=== PATIENT | female | born 1975 | race Caucasian/White ===

== ENCOUNTER 2020-01-30 17:00 | Emergency (ER) | payer OTHER, SELFPAY ==
[2020-01-30 17:16] VITALS: BP 128/84; PULSE 72; RESP 17; TEMP 36.9; O2SAT 99; BMI 42.9
--- NOTE | 2020-01-30 18:00 | ED_ITS ---
HPI - Headache General Chief Complaint: Headache Stated Complaint: migraine Time Seen by Provider: 01/30/20 17:22 Source: patient Mode of arrival: ambulatory Limitations: no limitations History of Present Illness HPI Narrative: Patient presents to ED for migraine exacerbation. Patient states having headache for the past 4 days. Patient states having severe history of migraine and follow-up with neurologist. Patient states used to be on ergotamine by her neurologist but then stopped working in October of this year. Patient presently is not on any migraine exacerbation and has appointment with neurology in 2 weeks. Patient states she is having similar presentation with photophobia and headache. Patient denies any neck stiffness, fever, chills, body aches, chest pain, coughing up blood, shortness of breath. Patient denies any recent head trauma. Related Data Previous Rx's Medication Instructions Recorded khknkyjoat-lvrbhxvtotlsn-efeh 1 cap PO Q4H PRN #20 cap 01/30/20 [Fioricet] ergotamine tartrate 2 mg SUBLINGUAL Q30M PRN #5 tab 01/30/20 naproxen 500 mg PO BID PRN #20 tab 01/30/20 Allergies Allergy/AdvReac Type Severity Reaction Status Date / Time No Known Allergies Allergy Unverified 11/22/19 18:26 Review of Systems Review of Systems: Yes all other systems are reviewed and are negative Constitutional: Constitutional: Reports as per HPI, Reports no additional constitutional complaints and Reports headache(s) Eyes: Eyes: Reports as per HPI and Reports no additional eye complaints Comments: Photophobia ENT: Reports system reviewed and no additional complaints, except as documented, Reports as per HPI and Reports headache(s) Cardiovascular: Cardiovascular: Reports as per HPI and Reports no additional cardiovascular complaints Respiratory: Respiratory: Reports as per HPI and Reports no additional respiratory complaints Gastrointestinal: Gastrointestinal: Reports as per HPI, Reports no additional gastrointestinal complaints and Reports nausea Genitourinary: Genitourinary: Reports no additional female genitourinary complaints and Reports as per HPI Musculoskeletal: Musculoskeletal: Reports no additional musculoskeletal complaints and Reports as per HPI Neurologic: Reports system reviewed and no additional complaints, except as documented, Reports as per HPI and Reports headache(s) Psychiatric: Psychiatric: Reports no additional psychiatric complaints and Reports as per HPI PMF Past Medical History Medical History (Updated 01/31/20 @ 00:00 by Background Daemon) HTN (hypertension) Migraine Social History Social History Alcohol intake: never Smoking Status: Never smoker Smoked in Last 30 Days: No Use of substances other than those prescribed or required for medical reasons: No Advance Directives: No Advance Directives Information Provided: Yes Physical Exam Vital Signs: Vital Signs: Last Vital Signs Temp 98.5 F 01/30/20 17:16 Pulse 98 01/30/20 21:19 Resp 18 01/30/20 21:19 BP 126/68 01/30/20 21:19 Pulse Ox 100 01/30/20 21:19 Body Mass Index 42.9 Const: General: healthy appearing, comfortable, no acute distress, well developed and awake Orientation/consciousness: patient oriented x3 HENMT: Head: Yes normal to inspection, Yes No palpable skull fracture present, Yes atraumatic, No Murillo's sign, No contusion, No hematoma, No laceration, No palpable skull fracture, No raccoon eyes, No scalp tenderness, No Temporal artery tenderness present and No periorbital ecchymosis Eyes: Other: positive for photophobia General: appearance normal, both eyes and all related structures Neck: Neck: Yes normal visual inspection, Yes full ROM, Yes no lymphadenopathy, Yes no meningeal signs, Yes trachea midline, Yes supple and No tender Chest: Chest palpation & inspection: normal inspection of the chest, normal palpation of entire chest wall and no localized rib tenderness Resp: Effort & Inspection: normal respiratory effort and able to speak in complete sentences Auscultation: clear to auscultation bilaterally, no crackles, no rales, no rhonchi and no wheezes Cardio: Jugular venous distension: no JVD Heart sounds: S1 normal heart sound present and S2 normal heart sound present GI: Inspection: Yes normal to inspection and No abdominal wall ecchymosis Palpation (GI): Soft to palpation, not firm, nontender, no guarding and not rigid : General: No CVA tenderness and Yes no CVA tenderness Back/Spine/Pelvis: Back: no CVA tenderness, No CVA tenderness and No back tenderness Skin: General skin exam: no rashes or lesions noted Neuro: General: patient oriented x3, gait normal, no meningeal signs and CN's II-XI intact bilaterally Cranial nerves: Yes CN's II-XII intact bilaterally Extrem: General: Yes normal to inspection and Yes full ROM Psych: Appearance: grossly normal, well kempt and not disheveled Course Course Course Narrative: history physical exam indicate migraine exacerbation. Patient will be given migraine cocktail and re-evaluated. No need for imaging patient states headache is similar to prior presentation denies any recent head trauma. History physical exam does not indicate meningitis. Reevaluation(s) Reevaluation #1: Patient states headache resolved after receiving migraine cocktail. Urine is negative. Patient states presently she is on menstruation which explains blood in urine. Patient will be discharged with naproxen and Fioricet. Patient states she called the neurologist office today and they said she could go back on the ergotamine, but she went to the [facility] and there was no refills so she is requesting for a ergotamine to be ordered. Time: 21:01 MDM - Headache MDM Narrative Medical decision making narrative: migraine exacerbation Lab Data Labs: Lab Results 01/30/20 Range/Units 18:33 Urine Color YELLOW Urine Appearance CLEAR Urine pH 6.0 (5.0-8.0) Ur Specific [place] 1.025 (1.005-1.025) Urine Protein TRACE (NEG-TRACE) MG/DL Urine Glucose (UA) NEG (NEG) MG/DL Urine Ketones NEG (NEG) MG/DL Urine Blood 3+ H (NEG) Urine Nitrite NEG (NEG) Ur Leukocyte Esterase NEG (NEG) Urine RBC 10-14 H (0) /HPF Urine WBC 0-2 (0-4) /HPF Ur Squamous Epith Cells NONE /LPF Urine Bacteria TRACE /LPF Urine Test NEGATIVE (NEGATIVE) Discharge Plan Discharge Clinical Impression: Migraine Patient Disposition: Home, Self-Care Instructions: Migraine Headache (ED) Additional Instructions: return to the ED immediately for neck stiffness, severe headache, passing out, nausea, vomiting, fever, chills, or any other concerning symptoms. Please follow-up with your neurologist Prescriptions: New vffntmwvvn-nvmiffzoitxml-bsvq [Fioricet] 50-300-40 mg capsule 1 cap PO Q4H PRN (Reason: migraine headache) Qty: 20 RF: 0 naproxen 500 mg tablet 500 mg PO BID PRN (Reason: pain) Qty: 20 RF: 0 ergotamine tartrate 2 mg tablet, sublingual 2 mg sublingual Q30M PRN (Reason: migraine) Qty: 5 RF: 0 Interventions: ED Discharge Assessment Last Done: 01/30/20 21:13 Discharge Date/Time: 01/30/20 21:20 Print Language: Slovak
[2020-01-30] MEDS: 0.9 % Sodium Chloride 1,000 ML 999 ML IVCONT (18:23)
[2020-01-30] MEDS: diphenhydrAMINE HCL 50 MG/ML VIAL IVPUSH (18:24)
[2020-01-30] MEDS: Ketorolac Tromethamine 30 MG/ML VIAL IVPUSH (18:24)
[2020-01-30] MEDS: Metoclopramide HCl 10 MG/2 ML VIAL IVPUSH (18:25)
[2020-01-30 18:35] VITALS: BP 150/77; PULSE 100; RESP 16; O2SAT 100
[2020-01-30 19:02] LABS: Glucose Urine UA NEG (NEG); Leukocyte Esterase Urine NEG (NEG); Nitrite Urine NEG (NEG); Specific Gravity - Urine 1.025 (1.005-1.025); Urine Blood 3+ (NEG); Urine Ketones NEG (NEG); Urine Protein TRACE MG/DL (NEG-TRACE)
[2020-01-30 19:13] LABS: Appearance Urine CLEAR; Color Urine YELLOW
[2020-01-30 19:15] LABS: UPreg QC Valid YES; Urine Pregnancy NEGATIVE (NEGATIVE)
[2020-01-30 19:19] LABS: Bacteria Urine TRACE /LPF; WBC Urine 0-2 /HPF (0-4)
[2020-01-30 20:26] VITALS: BP 113/59; PULSE 70; RESP 16; O2SAT 98
[2020-01-30 21:19] VITALS: BP 126/68; PULSE 98; RESP 18; O2SAT 100
== END 2020-01-30 21:20 | disposition home or self-care (01) ==
PROVIDERS: Physician Assistant; Emergency Provider Emergency Medicine; PCP Internal Medicine
DX: G43.909 Migraine, unspecified, not intractable, without status migrainosus (principal); Z79.899 Other long term (current) drug therapy
CPT/HCPCS: 81001; 81003; 81025; 96361; 96374; 96375; 99284; J1200; J1885; J2765

== ENCOUNTER 2021-01-15 04:37 | Emergency (ER) | payer OTHER, SELFPAY ==
[2021-01-15 06:58] VITALS: BP 152/77; PULSE 96; RESP 19; TEMP 36.6; O2SAT 98; BMI 43.4
--- NOTE | 2021-01-15 07:08 | ED.HA ---
HPI - Headache General Chief Complaint: Headache Stated Complaint: Chronic Migraine Time Seen by Provider: 01/15/21 07:08 Source: patient Mode of arrival: ambulatory Limitations: no limitations History of Present Illness HPI Narrative: patient with a 10 year history of chronic migraine. This headache started 2 weeks ago, bilateral temperal and neck, patient with vomiting and aura MD elicited complaint: migraine Onset (ago): week(s) Onset description: gradually Location: right and left Severity: moderate Quality & Timing: aching Associated symptoms: nausea and vomiting Related Data Previous Rx's Medication Instructions Recorded katlcgbfku-ntkpewcfbprur-hyhccusx 1 cap PO Q4H PRN #20 cap 01/30/20 50 mg-300 mg-40 mg capsule (Fioricet) ergotamine tartrate 2 mg 2 mg SUBLINGUAL Q30M PRN #5 tab 01/30/20 sublingual tablet naproxen 500 mg tablet 500 mg PO BID PRN #20 tab 01/30/20 promethazine 25 mg tablet 25 mg PO TID PRN #14 tab 01/15/21 Allergies Allergy/AdvReac Type Severity Reaction Status Date / Time No Known Allergies Allergy Unverified 11/22/19 18:26 Review of Systems Constitutional: Constitutional: Reports no additional constitutional complaints Eyes: Eyes: Reports no additional eye complaints ENT: Denies dizziness Cardiovascular: Cardiovascular: Reports no additional cardiovascular complaints Respiratory: Respiratory: Reports as per HPI Gastrointestinal: Gastrointestinal: Reports no additional gastrointestinal complaints Genitourinary: Genitourinary: Reports no additional female genitourinary complaints Musculoskeletal: Musculoskeletal: Reports no additional musculoskeletal complaints Integumentary/Breasts: Skin/Breast: Denies rash Neurologic: Reports system reviewed and no additional complaints, except as documented, Denies dizziness and Denies Sensory deficit (Neuro) Psychiatric: Psychiatric: Denies anxiety [facility] Past Medical History Medical History HTN (hypertension) Migraine Social History Social History Alcohol intake: never Advance Directives: No Advance Directives Information Provided: Yes Patient : No Physical Exam Vital Signs: Vital Signs: Last Vital Signs Temp 98.4 F 01/15/21 09:23 Pulse 80 01/15/21 09:23 Resp 14 01/15/21 09:23 BP 126/70 01/15/21 09:23 Pulse Ox 100 01/15/21 09:23 Body Mass Index 43.4 Const: General: healthy appearing Nutritional Appearance: average body habitus Orientation/consciousness: oriented to person and patient oriented x3 Limitations: no limitations HENMT: Head: Yes normal to inspection Ears: external ears normal General nose exam: Normal external nose present Mouth: Normal oral and palatal mucosa present and oropharynx normal Throat: Yes posterior oropharynx normal Eyes: General: appearance normal, both eyes and all related structures Neck: Other: supple Neck: Yes normal visual inspection Chest: Chest palpation & inspection: normal inspection of the chest Resp: Auscultation: clear to auscultation bilaterally Cardio: Jugular venous distension: no JVD Rate: regular rate Rhythm: regular rhythm Heart sounds: S1 normal heart sound present and S2 normal heart sound present GI: Inspection: Yes normal to inspection Palpation (GI): Soft to palpation, nontender and No hepatosplenomegaly present Auscultation: normal bowel sounds : General: Yes no CVA tenderness Back/Spine/Pelvis: Back: no CVA tenderness Skin: General skin exam: no rashes or lesions noted Neuro: General: oriented to person and patient oriented x3 Cranial nerves: Yes CN's II-XII intact bilaterally Motor exam (neuro): 5/5 motor strength present throughout Sensory Exam: No Sensory deficit (Neuro) Extrem: General: Yes normal to inspection Psych: Appearance: grossly normal Course Reevaluation(s) Reevaluation #1: patient feeling much better will dc home Time: 09:43 Discharge Plan Discharge Clinical Impression: Migraine Qualifiers: Migraine type: with aura Status migrainosus presence: with status migrainosus Intractability: not intractable Qualified Code(s): G43.101 - Migraine with aura, not intractable, with status migrainosus Patient Disposition: Home, Self-Care Instructions: Migraine Headache (ED) Prescriptions: New promethazine 25 mg tablet 25 mg PO TID PRN (Reason: nausea and vomiting) Qty: 14 RF: 0 No Action tunzoitags-epeeyqngjdvqw-pzof [Fioricet] 50-300-40 mg capsule 1 cap PO Q4H PRN (Reason: migraine headache) Qty: 20 RF: 0 naproxen 500 mg tablet 500 mg PO BID PRN (Reason: pain) Qty: 20 RF: 0 ergotamine tartrate 2 mg tablet, sublingual 2 mg sublingual Q30M PRN (Reason: migraine) Qty: 5 RF: 0 Referrals: Pieter Linn MD [Primary Care Provider] - 1 week
[2021-01-15] MEDS: Ketorolac Tromethamine 15 MG/ML VIAL 30 MG IVPUSH (07:55)
[2021-01-15] MEDS: 0.9 % Sodium Chloride 1,000 ML 999 ML IVCONT ×2 (07:59→09:15)
[2021-01-15 09:23] VITALS: BP 126/70; PULSE 80; RESP 14; TEMP 36.9; O2SAT 100
== END 2021-01-15 10:01 | disposition home or self-care (01) ==
PROVIDERS: Emergency Provider Emergency Medicine; PCP Internal Medicine
DX: G43.101 Migraine with aura, not intractable, with status migrainosus (principal); I10 Essential (primary) hypertension
CPT/HCPCS: 96361; 96374; 96375; 99284; J1885; J2550

== ENCOUNTER 2023-01-11 20:19 | Emergency (ER) | payer OTHER, SELFPAY ==
[2023-01-11 20:26] VITALS: BP 148/92; PULSE 84; RESP 18; TEMP 36.9; O2SAT 99; BMI 36.5
--- NOTE | 2023-01-11 20:26 | ED_ITS ---
HPI - General Adult General Chief complaint: General Medical Stated complaint: Vertigo/High blood pressure/Migraine Time Seen by Provider: 01/11/23 23:25 Source: patient Mode of arrival: ambulatory Limitations: no limitations History of Present Illness HPI narrative: 47 yo female with PMH of migraines who received botox injections, HTN who was not fully compliant with medications until recently (sounds like she has been caring for a sick family member) notes for the past three days typical migraine pattern. She did not have trauma or fevers. She states it just won't go away. Has hx of vertigo and got a sense tonight she was going to have an episode and had 20 minutes of room spinning no other neuro symptoms that has resolved. Not on blood thinners. MD complaint: headache and vertigo Onset (ago): day(s) (3) Location: head Radiation: non-radiation Severity: moderate Quality: aching and constant Pain Consistency: constant Relieving factors: rest Exacerbating factors: other (bright light noise) Associated symptoms: nausea/vomiting Treatments prior to arrival: other (did take her lisinopril tonight) Related Data Previous Rx's Medication Instructions Recorded kszatxolbi-rbisyqvujqzrp-hlgvxytt 1 cap PO Q4H PRN migraine headache 01/30/20 50 mg-300 mg-40 mg capsule #20 caps (Fioricet) ergotamine tartrate 2 mg 2 mg sublingual Q30M PRN migraine 01/30/20 sublingual tablet #5 tabs naproxen 500 mg tablet 500 mg PO BID PRN pain #20 tabs 01/30/20 promethazine 25 mg tablet 25 mg PO TID PRN nausea and 01/15/21 vomiting #14 tabs Allergies Allergy/AdvReac Type Severity Reaction Status Date / Time No Known Allergies Allergy Unverified 11/22/19 18:26 Review of Systems 2 Review of Systems: Constitutional : No Fever, No Chills, No Fatigue ENT/Mouth : No sore throat, No Rhinorrhea Eyes: No Eye Pain, No Swelling, No Redness Cardiovascular : No Chest Pain, No SOB, No Dyspnea on Exertion Respiratory : No Cough, No Sputum Gastrointestinal : pos Nausea, No Vomiting, No Diarrhea, No abdominal Pain Genitourinary : No Dysuria, No Urinary Frequency, No Hematuria, Musculoskeletal : No joint pain, No Myalgias, No Joint Swelling Skin : No Skin Lesions, No rash Neuro : No Weakness, No Numbness, pos Dizziness, positive Headache Psych : No Anxiety/Panic, No Depression Heme/Lymph: No Bruising, No Bleeding,No Lymphadenopathy Endocrine : No Polyuria, No Polydipsia All other systems reviewed and are negative [facility] Past Medical History Attestation statement: The following information was validated with the patient. Medical History HTN (hypertension) Migraine Social History Social History (Updated 01/12/23 @ 00:20 by Jenna Rico DO) Alcohol intake: never Patient Tobacco Use Status: Never used Tobacco Smoked in Last 30 Days: No Use of substances other than those prescribed or required for medical reasons: No Advance Directives: No Advance Directives Information Provided: No Patient : No Physical Exam ED Vital Signs: Vital Signs - 24 hr 01/11/23 20:26 01/11/23 23:36 01/11/23 23:37 Temperature 98.5 F Pulse Rate 84 71 77 Respiratory Rate 18 Blood Pressure 148/92 H 165/86 H 166/95 H Pulse Oximetry 99 Oxygen Delivery Method Room Air 01/11/23 23:38 01/12/23 00:53 Temperature Pulse Rate 77 86 Respiratory Rate 15 Blood Pressure 180/99 H 139/77 Pulse Oximetry 98 Oxygen Delivery Method Room Air BMI result Body Mass Index 36.5 Appearance: Alert. Oriented X3. No acute distress. Eyes: Pupils equal, round and reactive to light. ENT: Pharynx normal. Neck: Normal inspection. Neck supple. CVS: Normal heart rate and rhythm. Pulses normal. Respiratory: No respiratory distress. Breath sounds normal. Abdomen: Soft and nontender. Skin: Skin warm and dry. Normal skin color. Normal skin turgor. Extremities: No lower extremity edema. No calf ttp Neuro: Oriented X 3. No motor deficit. No sensory deficit. no drift, normal neuro exam Course Course Course Narrative: This is an RME: Additional HPI, ROS, PE not included below will be deferred to primary provider. Patient is a 47-year-old female who presents emergency department reporting concern of intermittent migraine for the past 3 days, unrelieved with caffeine tablet, states she typically takes ergotamine 300mg but did not have this available to her. Reports associated dizziness, room spinning sensation, feels like her usual vertigo. Denies fevers, chills, URI symptoms, neck pain. Follows [place] neurology for Botox management of migraines, states she can not go for Botox with an active migraine as this will worsen it. Plan: labs Reevaluation(s) Reevaluation #1: feels better stable for DC Medications Administered Discontinued Medications Generic Name Dose Route Start Last Admin Trade Name Sera PRN Reason Stop Dose Admin Diphenhydramine HCl 25 mg 01/11/23 23:47 01/12/23 00:29 Diphenhydramine Hcl 50 Mg/Ml Vial IVPUSH 01/11/23 23:48 25 mg ONCE ONE Administration Sodium Chloride 1,000 mls @ 999 mls/hr 01/11/23 23:45 01/12/23 00:29 Ns IV 01/12/23 00:45 999 mls/hr .Q1H1M VILMA Administration Ketorolac Tromethamine 15 mg 01/11/23 23:47 01/12/23 00:29 Ketorolac Tromethamine 15 Mg/Ml Vial IVPUSH 01/11/23 23:48 15 mg ONCE ONE Administration Metoclopramide HCl 10 mg 01/11/23 23:47 01/12/23 00:29 Metoclopramide Hcl 10 Mg/2 Ml Vial IVPUSH 01/11/23 23:48 10 mg ONCE ONE Administration Medical Decision Making Medical Decision Making [facility] Narrative: 47 yo female with PMH of HTN, migraines here with c/o 3 days of typical migraine gradual onset, afebrile normal neuro exam no meningeal signs doubt [employer] Infection or SAH. Has hx of vertigo and had a sense she was going to have episode tonight which she did - lasted 20 minutes no other associated symptoms she has NIH of 0 at this time doubt posterior stroke. Will treat for migraine and reassess. Differential Diagnosis Differential Diagnoses: The differential diagnosis associated with the presentation includes migraine, vertigo, tension headache, elevated BP Admission/Observation Consideration of admission/observation: Escalation of care including admission/observation considered feels much better stable for DC Lab Data [facility] Lab Attestation statement: I reviewed the patient's lab results. 01/11/23 20:44 01/11/23 20:44 Labs: Lab Results 01/11/23 Range/Units 20:44 WBC 9.9 (4.8-10.8) X10*3/uL RBC 4.74 (4.20-5.50) X10*6/uL Hgb 13.4 (12.0-16.0) g/dl Hct 39.2 (37.0-47.0) % MCV 82.7 (80.0-98.0) fL MCH 28.3 (27.0-33.0) pg MCHC 34.2 (31.0-35.0) g/dl RDW 13.2 (11.0-16.0) % Plt Count 307 (160-400) X10*3/uL MPV 11.2 (9.4-12.3) fL Immature Gran % (Auto) 0.4 (0.0-0.4) % Neut % (Auto) 67.0 (45-73) % Lymph % (Auto) 25.3 (20-40) % [place] % (Auto) 5.0 (2-11) % Eos % (Auto) 1.5 (0-4) % Baso % (Auto) 0.8 (0-2) % Lymph # (Auto) 2.5 (1.2-4.9) X10*3/uL [place] # (Auto) 0.5 (0.1-1.2) X10*3/uL Eos # (Auto) 0.2 (0.0-0.4) X10*3/uL Baso # (Auto) 0.1 (0.0-0.2) X10*3/uL Abs Immat Gran (auto) 0.04 H (0.00-0.03) X10*3/uL Absolute Neuts (auto) 6.6 (2.0-8.3) x10*3/uL Absolute Nucleated RBC 0.000 (0.0-0.012) X10*3/uL Nucleated RBC % (auto) 0.0 (0.0-0.2) /100WBC Sodium 135 (135-145) mmol/L Potassium 3.6 (3.3-5.1) mmol/L Chloride 104 (96-108) mmol/L Carbon Dioxide 22 (22-29) mmol/L Anion Gap 13 (12-20) BUN 8 L (9-16) mg/dL Creatinine 0.67 (0.5-1.4) mg/dL Estim Creat Clear Calc 113.9 Estimated GFR > 60 Random Glucose 249 H (60-115) mg/dL Calcium 8.5 (8.4-10.2) mg/dL Total Bilirubin 0.4 (0.0-1.0) mg/dL AST 15 (5-31) U/L ALT 20 (0-31) U/L Alkaline Phosphatase 98 (39-117) U/L Total Protein 6.8 (6.5-8.0) g/dL Albumin 3.9 (3.5-5.0) g/dL COVID-19 ([facility]) Negative (Negative) COVID-19 Clin Com See Note Influenza Type A (MARISELA) Negative (Negative) Influenza Type B (MARISELA) Negative (Negative) Influenza A & B Note See Note External Record Review External record reviewed: Inpatient record Tests considered The following testing was considered but not selected: CT head but normal neuro exam and hx of same doubt ICH Prescription Management I considered prescription management with: Other Discharge Plan Discharge Clinical Impression: Vertigo Headache, migraine Qualifiers: Migraine type: unspecified Status migrainosus presence: without status migrainosus Intractability: not intractable Qualified Code(s): G43.909 - Migraine, unspecified, not intractable, without status migrainosus Patient Disposition: Home, Self-Care Instructions: Migraine Headache (ED), Vertigo (ED) Additional Instructions: return for worsening pain, numbness, weakness, fevers, vision changes or any other concerns. Prescriptions: No Action sncgalvfhm-blfrrgehqzmfo-ogpf [Fioricet] 50-300-40 mg capsule 1 cap PO Q4H PRN (Reason: migraine headache) Qty: 20 0RF naproxen 500 mg tablet 500 mg PO BID PRN (Reason: pain) Qty: 20 0RF ergotamine tartrate 2 mg tablet, sublingual 2 mg sublingual Q30M PRN (Reason: migraine) Qty: 5 0RF Rx Instructions: do not exceed 6 mg per day or 10 mg per wk promethazine 25 mg tablet 25 mg PO TID PRN (Reason: nausea and vomiting) Qty: 14 0RF Rx Instructions: may take for headache as well as [place]
[2023-01-11 20:49] LABS: MANUAL DIFF FLAG NO
[2023-01-11 20:50] LABS: Basophils Absolute Auto 0.1 X10*3/uL (0.0-0.2); Basophils Percent Auto 0.8 % (0-2); Eosinophils Absolute Auto 0.2 X10*3/uL (0.0-0.4); Eosinophils Percent Auto 1.5 % (0-4); Hematocrit 39.2 % (37.0-47.0); Hemoglobin 13.4 g/dl (12.0-16.0); Imm Gran Abs Auto 0.04 X10*3/uL (0.00-0.03); Imm Gran Pct Auto 0.4 % (0.0-0.4); Lymphocytes Absolute Auto 2.5 X10*3/uL (1.2-4.9); Lymphocytes Percent Auto 25.3 % (20-40); Mean Corpuscular HGB Conc 34.2 g/dl (31.0-35.0); Mean Corpuscular Hemoglobin 28.3 pg (27.0-33.0); Mean Corpuscular Volume 82.7 fL (80.0-98.0); Mean Platelet Volume 11.2 fL (9.4-12.3); Monocytes Absolute Auto 0.5 X10*3/uL (0.1-1.2); Neutrophils Absolute Auto 6.6 x10*3/uL (2.0-8.3); Platelet Count 307 X10*3/uL (160-400); Red Blood Count 4.74 X10*6/uL (4.20-5.50); Red Cell Distribution Width 13.2 % (11.0-16.0); White Blood Count 9.9 X10*3/uL (4.8-10.8)
[2023-01-11 21:06] LABS: Alanine Aminotransferase 20 U/L (0-31); Albumin Level 3.9 g/dL (3.5-5.0); Alkaline Phosphatase 98 U/L (39-117); Anion Gap 13 (12-20); Aspartate Amino Transferase 15 U/L (5-31); Bilirubin Total 0.4 mg/dL (0.0-1.0); Blood Urea Nitrogen 8 mg/dL (9-16); COVID-19 Test Negative (Negative); Calcium 8.5 mg/dL (8.4-10.2); Carbon Dioxide 22 mmol/L (22-29); Chloride 104 mmol/L (96-108); Creatinine Clr Calc Pharmacy 113.9; Estimated Glomerular Filt Rate > 60; Glucose Random 249 mg/dL (60-115); IDNOW Serial# 08D9AD1C; IDNOW Serial# BCCEAD1C; Influenza A Negative (Negative); Influenza B2 Negative (Negative); Potassium 3.6 mmol/L (3.3-5.1); Sodium 135 mmol/L (135-145); Total Protein 6.8 g/dL (6.5-8.0)
[2023-01-11 23:36] VITALS: BP 165/86; PULSE 71
[2023-01-11 23:37] VITALS: BP 166/95; PULSE 77
[2023-01-11 23:38] VITALS: BP 180/99; PULSE 77
[2023-01-12] MEDS: diphenhydrAMINE HCL 50 MG/ML VIAL 25 MG IVPUSH (00:29)
[2023-01-12] MEDS: 0.9 % Sodium Chloride 1,000 ML 999 ML IV (00:29)
[2023-01-12] MEDS: Metoclopramide HCl 10 MG/2 ML VIAL IVPUSH (00:29)
[2023-01-12] MEDS: Ketorolac Tromethamine 15 MG/ML VIAL IVPUSH (00:29)
[2023-01-12 00:53] VITALS: BP 139/77; PULSE 86; RESP 15; O2SAT 98
== END 2023-01-12 01:51 | disposition home or self-care (01) ==
PROVIDERS: Nurse Practitioner Family; Emergency Provider Emergency Medicine; PCP Internal Medicine
DX: R42 Dizziness and giddiness (principal); G43.909 Migraine, unspecified, not intractable, without status migrainosus; I10 Essential (primary) hypertension; Z79.899 Other long term (current) drug therapy; Z11.52 Encounter for screening for COVID-19
CPT/HCPCS: 80053; 85025; 87502; 87635; 96361; 96374; 96375; 99284; J1200; J1885; J2765

== ENCOUNTER 2024-01-31 08:56 | Emergency (ER) | payer OTHER, SELFPAY ==
[2024-01-31 09:06] VITALS: BP 151/92; PULSE 92; RESP 18; TEMP 37; O2SAT 98; BMI 33.3
--- NOTE | 2024-01-31 11:37 | ED_ITS ---
HPI - Headache General Chief Complaint: Headache Stated Complaint: Migraine 6 days Time Seen by Provider: 01/31/24 11:14 Source: patient Mode of arrival: ambulatory Limitations: no limitations History of Present Illness ED Provider: SILVANA MARTIN PA-C HPI Narrative: 48 year old female with pmhx significant for migraines and HTN presents to the ED today for evaluation of migraine x6 days. She has followed up with her neurologist. She has been taking nurtec and ubrelvy without relief. She has been getting botox injections for her migraines for the last 3 years with improvement. She was scheduled for an injection with her neurologist today however recieved a call that they do not have her botox in stock. She presents today requesting migraine cocktail. States this feels like her typical migraine. Pain is localized to her right congregation. Endorses some blurred vision, watery eyes and nausea without vomiting. Denies fever, chills, dizziness, neck pain. No injury or trauma to the head. Related Data Previous Rx's ?Medication ?Instructions ?Recorded blrpsfwwhe-rpwkzmqjcraxs-vymisnsr 1 cap PO Q4H PRN migraine headache 01/30/20 50 mg-300 mg-40 mg capsule #20 caps (Fioricet) ergotamine tartrate 2 mg 2 mg sublingual Q30M PRN migraine 01/30/20 sublingual tablet #5 tabs naproxen 500 mg tablet 500 mg PO BID PRN pain #20 tabs 01/30/20 promethazine 25 mg tablet 25 mg PO TID PRN nausea and 01/15/21 vomiting #14 tabs lhdvhohyym-drfselrepmdvj-qhizvljn 1 cap PO Q4-6H PRN migraine 01/31/24 50 mg-300 mg-40 mg capsule headache #7 caps (Fioricet) Allergies Allergy/AdvReac Type Severity Reaction Status Date / Time No Known Allergies Allergy Unverified 01/31/24 09:09 Review of Systems Review of Systems: Constitutional: No fever, chills, fatigue, night sweats, weight changes ENT/Mouth: No ear pain, hearing loss, nasal congestion, sinus pain, rhinorrhea, sore throat Eyes: No eye pain, swelling, redness, vision changes, discharge, photophobia Cardio: No chest pain, palpitations, YEPEZ, orthopnea, peripheral edema Pulm: No SOB, cough, sputum, wheezing, dyspnea, hemoptysis GI: No nausea, vomiting, hematemesis, abdominal pain, diarrhea, constipation, hematochezia, melena : No irregular bleeding, dysuria, frequency, urgency, hesitancy, hematuria, flank pain, urinary flow changes, urinary incontinence or retention MSK: No back pain, neck pain, joint pain, myalgias Skin: No lesions, rashes Neuro: No weakness, numbness, paresthesias, LOC, dizziness, +headache Psych: No anxiety/panic, depression, SI/HI, AH/VH All other systems reviewed and are negative. REPLACED BY [facility] Past Medical History Attestation statement: The following information was validated with the patient. Source: old records reviewed and nursing notes reviewed Medical History HTN (hypertension) Migraine Social History Social History Alcohol intake: never Patient Tobacco Use Status: Never used Tobacco Smoked in Last 30 Days: No Advance Directives: No Advance Directives Information Provided: No Patient : No Physical Exam Vital Signs: Vital Signs: Last Vital Signs Temp 98.6 F 01/31/24 09:06 Pulse 92 01/31/24 09:06 Resp 18 01/31/24 09:06 BP 151/92 H 01/31/24 09:06 Pulse Ox 98 01/31/24 09:06 O2 Del Method Room Air 01/31/24 09:06 BMI result Body Mass Index 33.3 Vital signs stable Const: General: cooperative, healthy appearing, comfortable and no acute distress Orientation/consciousness: patient oriented x3 Limitations: no l imitations HEENT: Head: Yes normal to inspection, Yes No palpable skull fracture present, Yes normocephalic, Yes atraumatic, No scalp tenderness and No Temporal artery tenderness present Ears: hearing grossly normal bilaterally, external ears normal, TM's normal bilaterally, EAC's normal, mastoids normal and no periau ricular adenopathy Face and sinus: Yes normal facial exam and Yes sinuses nontender Mouth: Normal oral and palatal mucosa present and moist mucous membranes Eyes: General: appearance normal, both eyes and all related structures Conjunctivae: conjunctivae normal Sclerae: sclerae normal Pupils: Equal, round and reactive pupils present Direct Ophthalmoscopy: normal light reflex, no photophobia, no papilledema and fundi normal bilaterally Neck: Neck: Yes normal visual inspection, Yes full ROM, Yes no lymphadenopathy and Yes no meningeal signs Resp: Effort & Inspection: normal respiratory effort and able to speak in complete sentences Auscultation: clear to auscultation bilaterally Cardio: Rate: regular rate Rhythm: regular rhythm Back/Spine/Pelvis: Other: No midline spinous tenderness or step off deformity. No paraspinal muscle tenderness. Skin: General skin exam: no rashes or lesions noted Neuro: General: patient oriented x3, gait normal, tone normal, no meningeal si gns and no focal motor deficits Cranial nerves: Yes Equal, round and reactive pupils present Gait exam (Neuro): Normal gait present Motor exam (neuro): 5/5 motor strength present throughout and Pronator motor function not present Coordination: trdkro-yk-wmse test normal, tdhn-qj-rszn test normal, Romberg test negative and Normal rapid alternating movements of the distal upper extremity present (Neuro) Romberg Test: Negative Pupils: Normal pupillary reactivity/response: bilateral Course Course Course Narrative: 1340 -- patient reports improvement with Toradol, Reglan and Benadryl. Her pain was initially a 9/10, improved to 6/10. I also gave her Fioricet. On re- evaluation, she reports almost complete resolution of migraine after receiving fioricet. Will discharge her with a few tabs of Fioricet for breakthrough migraines. Advised to follow up with PCP and neurologist. Patient has remained stable throughout ED visit today. Discussed worrisome signs and symptoms and when to return to the ED. All questions answered at this time. Patient is agreeable with disposition and stable for discharge. Medications Administered Discontinued Medications Generic Name Dose Route Start Last Admin Trade Name Freq PRN Reason Stop Dose Admin Acetaminophen/Butalbital/Caffeine 1 tab 01/31/24 12:40 01/31/24 12:46 Butalb/Acetamin/Caff 50/325/40 Tablet PO 01/31/24 12:41 1 tab ONCE ONE Administration Diphenhydramine HCl 50 mg 01/31/24 11:37 01/31/24 11:54 Diphenhydramine Hcl 50 Mg/Ml Vial IVPUSH 01/31/24 11:38 50 mg ONCE ONE Administration Ketorolac Tromethamine 15 mg 11/26/24 11:37 01/31/24 11:53 Ketorolac Tromethamine 15 Mg/Ml Vial IVPUSH 01/31/24 11:38 15 mg ONCE ONE Administration Metoclopramide HCl 10 mg 01/31/24 11:37 01/31/24 11:55 Metoclopramide Hcl 10 Mg/2 Ml Vial IVPUSH 01/31/24 11:38 10 mg ONCE ONE Administration Medical Decision Making Medical Decision Making [facility] Narrative: 48 year old female with pmhx significant for migraines and HTN presents to the ED today for evaluation of migraine x6 days. Vital signs show hypertension to 151/39, otherwise wnl. Differential diagnosis includes migraine vs tension type headache. No headache red flags. Neurologic exam without evidence of meningismus. No focal neurologic findings. Presentation not consistent with acute intracranial bleed including SA H (lack of risk factors, headache history). Presentation not consistent with acute MOPPER infection including meningitis or brain abscess. Temporal arteritis unlikely, as is acute angle closure glaucoma given history and physical findings. Presentation not consistent with other acute, emergent causes of headache at this time. Plan to treat symptomatically with pain medication. No indication for imaging/LP at this time. Plan: pain medication, reassessment. Differential Diagnosis Differential Diagnoses: The differential diagnosis associated with the presentation includes as above. Admission/Observation Not indicated Lab Data [facility] Lab Attestation statement: I reviewed the patient's lab results. As above External Record Review External record reviewed: Inpatient record, Office record, Outpatient record, Prior outpatient labs, Prior outpatient radiology, Primary care record and Outside ED record Prescription Management I considered prescription management with: Pain Medication (Fioricet) Chronic Conditions Patient?s care impacted by: Other (Migraines) Social Determinants Patient?s care significantly limited by Social Determinants of Health including: Other Social Determinant of Health Critical Care Time Critical Care Time Critical Care Time: No Discharge Plan Discharge Clinical Impression: Migraine Patient Disposition: Home, Self-Care Instructions: Butalbital/Acetaminophen/Caffeine (By mouth), Migraine Headache (ED) Additional Instructions: You have been evaluated in the Emergency Department today for migraine. Your evaluation did not show evidence of medical conditions requiring emergent intervention at this time, and your pain improved with medication in the ED. Fioricet has been sent to your pharmacy for you to take as needed for migraine headache. Please follow up with your primary care physician within two days. Return to the Emergency Department if you experience worsening or uncontrolled pain, vision changes, recurrent vomiting, difficulty with normal activities, abnormal behavior, difficulty walking, numbness, weakness, or any other concerning symptoms. Prescriptions: New nprenjwskp-jmgqmgkladvlb-jlze [Fioricet] 50-300-40 mg capsule 1 cap PO Q4-6H PRN (Reason: migraine headache) Qty: 7 0RF No Action usbcmubkhc-ttubwmtggpcua-gjei [Fioricet] 50-300-40 mg capsule 1 cap PO Q4H PRN (Reason: migraine headache) Qty: 20 0RF naproxen 500 mg tablet 500 mg PO BID PRN (Reason: pain) Qty: 20 0RF ergotamine tartrate 2 mg tablet, sublingual 2 mg sublingual Q30M PRN (Reason: migraine) Qty: 5 0RF Rx Instructions: do not exceed 6 mg per day or 10 mg per wk promethazine 25 mg tablet 25 mg PO TID PRN (Reason: nausea and vomiting) Qty: 14 0RF Rx Instructions: may take for headache as well as NV Referrals: Sonia Moon MD [Primary Care Provider] - Stand Alone Forms: Work/School Release Print Language: [place] Zealander
[2024-01-31] MEDS: Ketorolac Tromethamine 15 MG/ML VIAL IVPUSH (11:53)
[2024-01-31] MEDS: diphenhydrAMINE HCL 50 MG/ML VIAL IVPUSH (11:54)
[2024-01-31] MEDS: Metoclopramide HCl 10 MG/2 ML VIAL IVPUSH (11:55)
[2024-01-31] MEDS: Butalb/Acetamin/Caff 50/325/40 TABLET 1 TAB PO (12:46)
--- NOTE | 2024-01-31 12:49 | PC.NURSE ---
pt medicated per MAY- pt reports some improvement in pain, now 08/14
[2024-01-31 13:48] VITALS: BP 151/92; PULSE 92; RESP 18; TEMP 37; O2SAT 98
== END 2024-01-31 13:49 | disposition home or self-care (01) ==
PROVIDERS: Emergency Provider Emergency Medicine; PCP Student in an Organized Health Care Education/Training Program
DX: G43.909 Migraine, unspecified, not intractable, without status migrainosus (principal); Z79.899 Other long term (current) drug therapy
CPT/HCPCS: 96374; 96375; 99284; J1200; J1885; J2765